=== PATIENT | male | born 1980 | race Hispanic/Latino ===

== ENCOUNTER 2018-12-17 02:57 | Emergency (ER) | payer SELFPAY ==
--- NOTE | 2018-12-17 08:46 | RAD ---
Exam: Left elbow 4 views: HISTORY: Injury from a fall COMPARISON: None FINDINGS: No evidence for fracture, dislocation, or other significant acute osseous abnormality. IMPRESSION: No significant acute process.
--- NOTE | 2018-12-17 08:47 | RAD ---
Exam: Left forearm 2 views: HISTORY: Injury from a fall COMPARISON: None FINDINGS: No evidence for fracture, dislocation, or other significant acute osseous abnormality. IMPRESSION: No significant acute process.
== END 2018-12-17 03:52 | disposition home or self-care (01) ==
LOC: ERS 02:57
DX: S50.02XA Contusion of left elbow, initial encounter (principal); W18.30XA Fall on same level, unspecified, initial encounter